=== PATIENT | female | born 1965 | race Caucasian/White ===

== ENCOUNTER 2024-01-05 11:38 | Emergency (ER) | payer SELFPAY ==
[2024-01-05] MEDS ORDERED: Ondansetron ODT 4 MG TAB ONE (12:17)
[2024-01-05] MEDS ORDERED: Acetaminophen 500 MG TAB ONE (12:17)
== END 2024-01-05 12:24 | disposition home or self-care (01) ==
LOC: BURERS 11:38
DX: R51.9 Headache, unspecified (principal); R53.83 Other fatigue; B88.9 Infestation, unspecified; E11.9 Type 2 diabetes mellitus without complications; I10 Essential (primary) hypertension; F17.210 Nicotine dependence, cigarettes, uncomplicated
CPT/HCPCS: 99283; Q0162